=== PATIENT | male | born 1950 | race Caucasian/White ===

== ENCOUNTER 2018-02-09 00:43 | Emergency (ER) | payer OTHER ==
[~2018-02-09] VITALS: Ht 182.9 cm; Wt 97.5 kg
[2018-02-09] MEDS ORDERED: SODIUM CHLORIDE 0.9% 1000ML 1,000 ML IV ONE ×2 (01:00→02:15)
[2018-02-09] MEDS ORDERED: ASPIRIN 81 MG CHEW TAB PO ONE (01:00)
[2018-02-09 01:53] LABS: ALBUMIN 3.9 g/dL (3.5-5.0); ANION GAP 19.5 mmol/L (8-16); CALCIUM 9.7 mg/dL (8.4-10.2); CREATININE, SERUM 1.61 mg/dL (0.72-1.25); POTASSIUM 4.5 mmol/L (3.5-5.1)
[2018-02-09 02:03] LABS: BASOPHILS # (AUTO) 0.1 (0.0-0.1); BASOPHILS % 0.3 % (0.0-1.0); EOSINOPHILS # (AUTO) 0.2 (0.0-0.4); EOSINOPHILS % 0.8 % (0.0-6.0); HEMATOCRIT 45.1 % (38.2-49.6); HEMOGLOBIN 14.8 g/dL (14.0-18.0); LYMPHOCYTES # (AUTO) 1.8 (1.0-3.2); LYMPHOCYTES % 10.2 % (18.0-39.1); MEAN CORPUSCULAR HEMOGLOBIN 30.5 pg (28-32); MEAN CORPUSCULAR HGB CONC 32.8 g/dL (31-35); MONOCYTES # (AUTO) 1.2 (0.2-0.8); MONOCYTES % 6.5 % (4.4-11.3); NEUTROPHILS # (AUTO) 14.7 (2.1-6.9); NEUTROPHILS % 81.5 % (38.7-80.0); PLATELET COUNT 172 x10e3/uL (140-360); RED BLOOD COUNT 4.85 x10e6/uL (4.3-5.7); RED CELL DISTRIBUTION WIDTH 13.4 % (11.7-14.4)
[2018-02-09] MEDS ORDERED: AZITHROMYCIN 500MG/NS 250 ML 250 ML IV STA (02:12)
[2018-02-09] MEDS ORDERED: CEFTRIAXONE SOD 1 GM VIAL IV ONE (02:15)
--- NOTE | 2018-02-09 02:22 | Diagnostic Imaging Report ---
CHEST SINGLE (PORTABLE), 02/09/2018 12:52 AM Technique: CHEST SINGLE (PORTABLE) Comparison: None available. Clinical history: \S\chest pain, sob \[id number] \S\[id number] \S\Y Findings: See Impression Impression: 1. Mildly enlarged cardiomediastinal silhouette, accentuated by portable lordotic view. 2. Perihilar vascular prominence and bibasilar opacity which may be due to technique/atelectasis. Consider upright PA and lateral for better evaluation if there is ongoing clinical concern. 3. No effusion or pneumothorax. Signed by: Dr Ghada Panchal MD on 02/09/2018 2:19 AM
[2018-02-09 02:27] LABS: INR 1.08; PROTHROMBIN TIME 13.2 seconds (11.9-14.5)
[2018-02-09 02:28] LABS: PARTIAL THROMBOPLASTIN TIME 29.1 seconds (23.8-35.5)
[2018-02-09] MEDS ORDERED: ONDANSETRON HCL INJ 2 MG/ML VIAL IV STA (02:31)
[2018-02-09 02:40] LABS: CREATINE KINASE MB 11.5 ng/mL (0-5.0)
[2018-02-09] MEDS ORDERED: ALBUTEROL/IPRATROPIUM 3 ML NEB NEB ONE (02:45)
[2018-02-09] MEDS ORDERED: ALBUTEROL SULF 0.083% NEB SOLN 3 ML NEB ONE (03:13)
[2018-02-09] MEDS ORDERED: DIPHENHYDRAMINE HCL INJ 50 MG/ML VIAL IV ONE (03:15)
[2018-02-09] MEDS ORDERED: METHYLPREDNISOLONE SOD SUCC 125 MG/2ML VIAL IV ONE (03:15)
[2018-02-09] MEDS ORDERED: DIPHENHYDRAMINE HCL INJ 50 MG/ML VIAL ONE (03:20)
[2018-02-09] MEDS ORDERED: FENTANYL CITRATE INJ 2,000 MCG in SODIUM CHLORIDE 0.9% 250ML 210 ML IV PRN (03:30)
[2018-02-09] MEDS ORDERED: FUROSEMIDE INJ 10 MG/ML 4 ML VIAL ONE (03:34)
[2018-02-09] MEDS ORDERED: NOREPINEPHRINE 8 MG/D5W 250 ML 250 ML ONE (03:40)
--- NOTE | 2018-02-09 03:58 | Diagnostic Imaging Report ---
CHEST SINGLE (PORTABLE), 02/09/2018 3:26 AM Technique: CHEST SINGLE (PORTABLE) Comparison: 02/09/2018 Clinical history: Intubation Findings: See Impression Impression: 1. Lines/Tubes: ET tube about 5 cm above the marko. 2. Stable mildly enlarged cardiac silhouette. 3. Increased diffuse bilateral pulmonary opacities which may reflect edema with or without underlying infection. Signed by: Dr Ghada Panchal MD on 02/09/2018 3:55 AM
[2018-02-09] MEDS ORDERED: SODIUM CHLORIDE 0.9% 250ML 250 ML ONE (04:36)
[2018-02-09] MEDS ORDERED: EPINEPHRINE HCL INJ 1 MG/ML AMP ONE (04:36)
[2018-02-09] MEDS ORDERED: AMIODARONE HCL 100 ML IV ONE (04:41)
[2018-02-09] MEDS ORDERED: ATROPINE SULFATE 0.1 MG/ML 10ML SYR IV ONE (14:09)
[2018-02-09] MEDS ORDERED: SODIUM CHLORIDE 0.9% INJ 250 ML BAG IV ONE (14:09)
[2018-02-09] MEDS ORDERED: AMIODARONE HCL 150 MG/100 ML BAG IV ONE ×2 (14:09→14:14)
[2018-02-09] MEDS ORDERED: DEXTROSE 5% 250 ML BAG IV ONE (14:09)
[2018-02-09] MEDS ORDERED: EPINEPHRINE HCL SYRINGE IV ONE (14:09)
[2018-02-09] MEDS ORDERED: AMIODARONE HCL INJ 150MG/3ML IV ONE (14:09)
[2018-02-09] MEDS ORDERED: EPINEPHRINE HCL INJ 1 MG/ML AMP IV ONE (14:09)
[2018-02-09] MEDS ORDERED: SODIUM BICARBONATE 8.4% INJ 50 ML SYR IV ONE (14:09)
== END 2018-02-09 09:04 | disposition expired ==
LOC: ER 00:43
PROC: 05HY33Z Insertion of Infusion Device into Upper Vein, Percutaneous Approach (ICD-10-PCS; principal; 2018-02-09)
DX: R09.02 Hypoxemia (principal); R06.00 Dyspnea, unspecified; J96.90 Respiratory failure, unspecified, unspecified whether with hypoxia or hypercapnia; R07.9 Chest pain, unspecified; J81.1 Chronic pulmonary edema; R79.89 Other specified abnormal findings of blood chemistry; J18.9 Pneumonia, unspecified organism; R00.0 Tachycardia, unspecified; R11.2 Nausea with vomiting, unspecified; I10 Essential (primary) hypertension; E11.9 Type 2 diabetes mellitus without complications; E78.5 Hyperlipidemia, unspecified
CPT/HCPCS: 31500; 36415; 36555; 36558; 71045; 80053; 82550; 82553; 82948; 83605; 83880; 84484; 85025; 85379; 85610; 85730; 87040; 93005; 96360; 99285; J0171 ×2; J0456; J0696; J1200; J1940; J2405; J2930; J7030; J7050